=== PATIENT | male | born 2000 | race Caucasian/White ===

== ENCOUNTER 2021-09-10 13:01 | Emergency (ER) | payer OTHER ==
[2021-09-10 13:48] VITALS: BP 115/72; PULSE 67; TEMP 98.5; BMI 18.3
[2021-09-10] MEDS ORDERED: CEPHALEXIN MONOHYDRATE 500 MG CAPSULE (UD) PO ONE (15:42)
[2021-09-10] MEDS ORDERED: DIPHTH,PERTUSS(ACELL),TET 0.5 ML DISP.SYRIN IM ONE ×2 (15:42→15:44)
[2021-09-10] MEDS ORDERED: CEPHALEXIN MONOHYDRATE 500 MG CAPSULE (UD) ONE (15:44)
== END 2021-09-10 15:49 | disposition home or self-care (01) ==
LOC: JERFT 13:01
PROC: 3E0234Z Introduction of Serum, Toxoid and Vaccine into Muscle, Percutaneous Approach (ICD-10-PCS; principal; 2021-09-10)
DX: S61.232A Puncture wound without foreign body of right middle finger without damage to nail, initial encounter (principal); W45.0XXA Nail entering through skin, initial encounter
CPT/HCPCS: 90471; 90715; 99283-25

== ENCOUNTER 2024-08-22 10:58 | Emergency (ER) | payer OTHER ==
[2024-08-22 11:19] VITALS: BP 115/73; PULSE 70; RESP 18; TEMP 98.8; BMI 19.0
[2024-08-22] MEDS ORDERED: IBUPROFEN 600 MG TABLET (FP) PO ONE (11:54)
[2024-08-22] MEDS: IBUPROFEN 600 MG TABLET (FP) PO ONE (11:56)
== END 2024-08-22 13:12 | disposition home or self-care (01) ==
LOC: JERFT 10:58
DX: S96.912A Strain of unspecified muscle and tendon at ankle and foot level, left foot, initial encounter (principal); X50.1XXA Overexertion from prolonged static or awkward postures, initial encounter; Y93.66 Activity, soccer
CPT/HCPCS: 73610-TC-LT-FY; 99283-25